=== PATIENT | female | born 1990 | race Caucasian/White ===

== ENCOUNTER 2016-12-03 23:34 | Emergency (ER) | payer MEDICAID | END 2016-12-04 04:07 | disposition left against medical advice (07) | LOC: ER 23:34 | DX: R07.2 Precordial pain (principal); G25.9 Extrapyramidal and movement disorder, unspecified; J45.901 Unspecified asthma with (acute) exacerbation | CPT/HCPCS: 36415; 71020; 80053; 80307; 80320; 80329; 81003; 84439; 84443; 85025; 85610 ==